=== PATIENT | female | born 1990 | race Two or more races ===

== ENCOUNTER 2022-10-20 02:14 | Emergency (ER) | payer OTHER ==
[~2022-10-20] VITALS: Ht 160 cm; Wt 54.4 kg
--- NOTE | 2022-10-20 02:30 | NUR ---
BIBS C/O FACIAL SWELLING X 3DAYS, TAKING FRIENDS AMOX X 2 DAYS. PT AWAKE AND ALERT AFEBRILE AT TRIAGE. PT RESTLESS AND AGITATED WITH STAFF. BROUGHT TO ER BED 7 AND YELLING IN BED FOR BOYFRIEND. REQUESTING TO WAIT IN WAITING ROOM
--- NOTE | 2022-10-20 02:42 | NUR ---
PT REFUSES TO BE IN ER ROOM
--- NOTE | 2022-10-20 03:29 | NUR ---
Note saloni in EDM - 10/20/22 at 0341 by [email or web address] PT ANSLEY DOES NOT WANT TO BE IN ED ROOM, YELLING AT ED AND RN. MARIE FROM EMERGENCY DEPARTMENT.
--- NOTE | 2022-10-20 03:29 | NUR ---
PT AGGITATED DOES NOT WANT TO BE IN ED ROOM, YELLING AT ED MD AND RN. LEFT AMA FROM DEPARTMENT. REFUSED TO SIGN AMA FORM DUE TO AGGITATION AND AGRESSION TOWARDS STAFF.
[2022-10-20] MEDS ORDERED: SULF1TAB48 PO ×2 (03:37→03:38)
[2022-10-20 03:48] VITALS: BP 134/77
== END 2022-10-20 03:30 | disposition left against medical advice (07) ==
LOC: ER 02:31
DX: L03.211 Cellulitis of face (principal)